=== PATIENT | female | born 1985 | race Caucasian/White ===

== ENCOUNTER 2016-09-21 11:25 | Outpatient (CLI) | payer MEDICAID ==
[2016-09-21 12:54] LABS: Hematocrit 33.2 % (30.3-42.9); Hemoglobin 11.1 gm/dl (10.1-14.3); Mean Corpuscular HGB Conc 33 % (30-34); Mean Corpuscular Hemoglobin 28 pg (28-32); Mean Corpuscular Volume 82 fl (79-97); Platelet Count 136 K/mm3 (140-440); Red Blood Count 4.02 M/mm3 (3.65-5.03); Red Cell Distribution Width 16.1 % (13.2-15.2); White Blood Count 6.5 K/mm3 (4.5-11.0)
[2016-09-21 13:19] LABS: Alanine Aminotransferase 12 units/L (7-56)
[2016-09-21 13:33] LABS: Bacteria,Urine 1+ /HPF (Negative); Bilirubin,Urine NEG (Negative); Blood,Urine LG (Negative); Ketones,Urine NEG (Negative); Leukocyte Esterase,Urine TR (Negative); Nitrite,Urine NEG (Negative); Protein,Urine <15 mg/dL mg/dL (Negative); Urobilinogen,Urine < 2.0 mg/dL (<2.0)
[2016-09-21 15:20] LABS: Lactate Dehydrogenase 160 units/L (91-180); Uric Acid 3.6 mg/dL (3.5-7.6)
[2016-09-21 15:41] VITALS: BP 143/78
== END 2016-09-21 15:44 | disposition home or self-care (01) ==
LOC: TRG 11:25 → INR 11:34 → TRG 11:45
PROVIDERS: ATTEND Obstetrics & Gynecology
DX: O47.1 False labor at or after 37 completed weeks of gestation (principal); Z3A.39 39 weeks gestation of pregnancy
CPT/HCPCS: 36415; 59025; 81001; 82565; 83615; 84450; 84460; 84550; 85027

== ENCOUNTER 2016-09-22 18:31 | Inpatient (IN) | payer MEDICAID ==
[2016-09-22] MEDS ORDERED: STADOL IV PRN (20:58)
[2016-09-22] MEDS ORDERED: SUBLIMAZE IV PRN (20:58)
[2016-09-22] MEDS ORDERED: PITOCin/NS 20 UNIT/1000ML DRIP 20 UNITS/1,000 ML BAG IV SCH (21:00)
[2016-09-22] MEDS ORDERED: PITOCin/NS 30 UNIT/500ML 30 UNITS/500 ML BAG IV SCH (21:00)
[2016-09-22] MEDS ORDERED: LACTATED RINGERS 1,000 ML IV SCH (21:00)
[2016-09-22 21:38] LABS: Hematocrit 34.9 % (30.3-42.9); Hemoglobin 11.5 gm/dl (10.1-14.3); Mean Corpuscular HGB Conc 33 % (30-34); Mean Corpuscular Hemoglobin 27 pg (28-32); Mean Corpuscular Volume 83 fl (79-97); Platelet Count 147 K/mm3 (140-440); Red Cell Distribution Width 16.7 % (13.2-15.2); White Blood Count 9.9 K/mm3 (4.5-11.0)
[2016-09-23] MEDS ORDERED: ePHEDrine SULFATE IV PRN (00:02)
[2016-09-23] MEDS ORDERED: STADOL IV PRN (00:02)
[2016-09-23] MEDS ORDERED: SUBLIMAZE IV PRN (00:02)
[2016-09-23] MEDS ORDERED: BRETHINE IVP PRN (00:02)
[2016-09-23] MEDS ORDERED: MINERAL OIL PO PRN (00:02)
[2016-09-23] MEDS ORDERED: BRETHINE SUB-Q PRN (00:02)
[2016-09-23] MEDS ORDERED: XYLOCAINE 2% INFILTRATI ONE (00:02)
--- NOTE | 2016-09-23 00:02 | History and Physical Report ---
History of Present Illness Date of examination: 09/22/16 Date of admission: 09/22/16 19:26 History of present illness: 31 yo LMP EDC 09/26/16 @ 39.3 weeks gestation presented to triage reported SROM-clear fluid that occurred at 1330 today. Denies vaginal bleeding, reported positive FM. Entry into care at 14 weeks gestation. course uncomplicated. She is GBS negative. Past History Past Medical History: no pertinent history Past Surgical History: no surgical history Family/Genetic History: none Social history: no significant social history - Obstetrical History Expected Date of Delivery: 09/26/16 Actual Gestation: 39 Week(s) 4 Day(s) : 1 Medications and Allergies Allergies Allergy/AdvReac Type Severity Reaction Status Date / Time No Known Allergies Allergy Unverified 09/21/16 11:57 Home Medications Medication Instructions Recorded Confirmed Last Taken Type No Known Home Medications [No 09/22/16 09/22/16 Unknown History Reported Home Medications] Active Meds: Active Medications Butorphanol Tartrate (Stadol) 2 mg IV Q2H PRN PRN Reason: Labor Pain Fentanyl (Sublimaze) 100 mcg IV Q1HR PRN PRN Reason: Pain Lactated Ringer's (Lactated Ringers) 1,000 mls @ 125 mls/hr IV DIRECT GREGG Last Admin: 09/22/16 22:17 Dose: 125 mls/hr Oxytocin/Sodium Chloride (Pitocin/Ns 20 Unit/1000ml Drip) 20 units in 1,000 mls @ 0 mls/hr IV DIRECT GREGG PRN Reason: As Directed Oxytocin/Sodium Chloride (Pitocin/Ns 30 Unit/500ml) 30 units in 500 mls @ 2 mls /hr IV TITR GREGG PRN Reason: Protocol Last Titration: 09/22/16 23:15 Dose: 6 ml/hr, 6 mls/hr Review of Systems All systems: negative Genitourinary: normal appearance, leakage of fluid, contractions, no genital sores - Vital Signs Vital signs: Vital Signs Pulse Pulse Ox 80 98 09/22/16 19:54 09/22/16 19:54 Temp Pulse Resp BP Pulse Ox 98.7 F 97 H 20 122/82 100 09/22/16 20:29 09/22/16 23:55 09/22/16 20:29 09/22/16 20:29 09/22/16 23:55 - Physical Exam Breasts: Positive: deferred Vagina: Positive: normal moisture - Obstetrical FHR: category 1 Uterine Contraction Monitor Mode: External Cervical Dilatation: 3.5 Uterine Contraction Frequency (min): -2 Uterine Contraction Duration: 2-3 Uterine Contraction Pattern: Regular Uterine Tone Measurement Phase: Resting Uterine Contraction Intensity: Mild Results Result Diagrams: 09/22/16 20:30 Abnormal lab results 09/22/16 Range/Units 20:30 MCH 27 L (28-32) pg RDW 16.7 H (13.2-15.2) % All other labs normal. Assessment and Plan A: IUP at 39.3 weeks gestation SROM-clear fluid GBS negative P: Active nilton't Pitocin
[2016-09-23] MEDS ORDERED: LACTATED RINGERS 1,000 ML IV SCH (01:00)
[2016-09-23] MEDS ORDERED: PITOCin/NS 20 UNIT/1000ML DRIP 20 UNITS/1,000 ML BAG IV SCH (01:00)
[2016-09-23] MEDS ORDERED: PITOCin/NS 30 UNIT/500ML 30 UNITS/500 ML BAG IV SCH ×2 (01:00)
[2016-09-23 01:29] LABS: Hematocrit 32.9 % (30.3-42.9); Hemoglobin 10.7 gm/dl (10.1-14.3)
--- NOTE | 2016-09-23 04:20 | Procedure Note ---
OB Delivery Note - Delivery Date of Delivery: 09/23/16 (6-7oz male @ 0445) Surgeon: CHARLA BERG - Vaginal Delivery presentation: vertex Delivery position: OA Delivery augmentation: pitocin Delivery monitor: external FHT, external uterine Route of delivery: Delivery placenta: spontaneous Delivery cord: 3 umbilical vessels Episiotomy: none Delivery laceration: none Anesthesia: none - A at 1 minute: 8 (Progressed rapidly to C/C/+1 pushed for viable male. NICU at for recent maternal sedation. Spont. lusty cry, placed skin to skin. Spont. placenta. Pitocin infusing. Fundus messaged firm. bleeding scant. No lacerations on inspection) at 5 minutes: 9 Infant Gender: Male
[2016-09-23] MEDS ORDERED: MILK OF MAGNESIA PO PRN (05:00)
[2016-09-23] MEDS ORDERED: PHENERGAN PO PRN (05:00)
[2016-09-23] MEDS ORDERED: PHENERGAN PR PRN (05:00)
[2016-09-23] MEDS ORDERED: BENADRYL PO PRN (05:00)
[2016-09-23] MEDS ORDERED: LANSINOH TP PRN (05:00)
[2016-09-23] MEDS ORDERED: TUCKS PAD TP PRN (05:00)
[2016-09-23] MEDS ORDERED: NORCO 5/325 PO PRN (05:00)
[2016-09-23] MEDS ORDERED: SODIUM CHLORIDE FLUSH SYRINGE 10 ML IV NR (05:00)
[2016-09-23] MEDS ORDERED: TYLENOL PO PRN (05:00)
[2016-09-23] MEDS ORDERED: DULCOLAX PR PRN (05:00)
[2016-09-23] MEDS: MOTRIN PO SCH ×2 (06:38→14:31)
[2016-09-23] MEDS: PRENATAL VITAMIN PO SCH (11:05)
[2016-09-23 18:55] LABS: Hematocrit 28.7 % (30.3-42.9); Hemoglobin 9.3 gm/dl (10.1-14.3)
[2016-09-24] MEDS: MOTRIN PO SCH ×5 (00:03→22:30)
[2016-09-24] MEDS ORDERED: BOOSTRIX IM ONE (06:05)
[2016-09-24] MEDS: PRENATAL VITAMIN PO SCH (10:36)
--- NOTE | 2016-09-24 17:18 | Progress Note ---
Assessment and Plan PPD 2 s/p .Doing well. Plan for discharge on today. Subjective - Subjective Date of service: 09/24/16 Patient reports: appetite normal, voiding normally, ambulating normally : doing well Objective - Vital Signs Latest vital signs: Vital Signs Temp Pulse Resp BP 09/24/16 08:32 97.6 F 80 20 116/72 09/24/16 00:00 98.2 F 88 20 135/79 Intake and Output 09/24/16 09/24/16 09/24/16 06:59 14:59 22:59 Intake Total 240 720 Balance 240 720 Intake: Oral 240 600 Intake, Free Water 120 Other: Total, Intake Amount 240 240 # Voids Void 1 1 - Exam Breasts: Present: deferred Cardiovascular: Present: Regular rate, Normal S1, Normal S2 Lungs: Present: Clear to auscultation, Normal air movement Abdomen: Present: normal appearance, soft, normal bowel sounds Vulva: both: normal Uterus: Present: normal, firm Extremities: Present: normal - Labs Labs: Abnormal lab results 09/23/16 Range/Units 18:25 Hgb 9.3 L (10.1-14.3) gm/dl Hct 28.7 L (30.3-42.9) %
--- NOTE | 2016-09-24 17:20 | Discharge Summary ---
Providers - Providers Date of Admission: 09/22/16 19:26 Date of discharge: 09/24/16 Attending physician: JONATHAN MONTESINOS Primary care physician: JONATHAN MONTESINOS Hospitalization Reason for admission: active labor Delivery: Episiotomy: none complications: none Discharge diagnosis: IUP at term delivered [place] baby: male Condition at discharge: Good Disposition: DC-01 TO HOME OR SELFCARE Plan - Discharge Medications Prescriptions: Ibuprofen [Motrin 600 MG tab] 600 mg PO Q6H #40 tablet Vit-Fe Fumar-FA [ Vitamin] 1 each PO QDAY #30 tablet - Provider Discharge Summary Activity: routine, no sex for 6 weeks, no heavy lifting 4 weeks, no strenuous exercise Diet: routine Instructions: routine Additional instructions: [] Smoking cessation referral if applicable(refer to patient education folder for contact #) [] Refer to [facility]'s [facility] Booklet Call your doctor immediately for: * Fever > 100.5 * Heavy vaginal bleeding ( >1 pad per hour) * Severe persistent headache * Shortness of breath * Reddened, hot, painful area to leg or breast * Drainage or odor from incision. * Keep incision clean and dry at all times and follow doctor's instructions regarding bathing/showering - Follow up plan Follow up: JONATHAN MONTESINOS MD [Primary Care Provider] - 6 Weeks
[2016-09-25] MEDS: MOTRIN PO SCH (06:01)
[2016-09-25] MEDS: PRENATAL VITAMIN PO SCH (10:14)
[2016-09-25 13:00] VITALS: BP 110/70
== END 2016-09-25 11:30 | disposition home or self-care (01) | DRG 775 ==
LOC: TRG 18:31 → LD 19:26 → OB 09-23 06:08
PROVIDERS: ADMIT Obstetrics & Gynecology; ATTEND Obstetrics & Gynecology
PROC: 10E0XZZ Delivery of Products of Conception, External Approach (ICD-10-PCS; principal; 2016-09-23)
DX: O42.92 Full-term premature rupture of membranes, unspecified as to length of time between rupture and onset of labor (principal); Z3A.39 39 weeks gestation of pregnancy; Z37.0 Single live birth
CPT/HCPCS: 36415; 85014; 85018; 85027; 86850; 86900; 86901; 90471; 90715; 99211; A6250; G0463; J0595; J2590; J3010; J7120

== ENCOUNTER 2020-01-15 05:56 | Day surgery (SDC) | payer BC, MEDICAID ==
[2020-01-15] MEDS ORDERED: BACTERIOSTATIC SODIUM CHLORIDE 0.9% 30 ML VIAL INFILTRATI ONE (06:23)
[2020-01-15] MEDS ORDERED: MIDAZOLAM 2 MG/2 ML INJ IV ONE (06:50)
[2020-01-15] MEDS ORDERED: LACTATED RINGERS 1,000 ML IV SCH (06:50)
[2020-01-15] MEDS ORDERED: propofoL 200 MG/20 ML VIAL IV ONE (07:12)
[2020-01-15] MEDS ORDERED: HYDROmorphone 1 MG/1 ML INJ ONE (07:12)
[2020-01-15] MEDS ORDERED: LIDOCAINE MPF (2%) 20 MG/1 ML VIAL 5 ML ONE (07:13)
[2020-01-15] MEDS ORDERED: ROCURONIUM 50 MG/5 ML INJ IV ONE (07:13)
[2020-01-15] MEDS ORDERED: HYDROmorphone 1 MG/1 ML INJ IV PRN ×2 (07:17)
[2020-01-15] MEDS ORDERED: ONDANSETRON 4 MG/2 ML INJ IV PRN (07:17)
--- NOTE | 2020-01-15 07:17 | Anesthesia Day of Surgery ---
Anesthesia Day of Surgery - Day of Surgery Patient Examined: Yes Patient H&P Reviewed: Yes Patient is NPO: Yes
--- NOTE | 2020-01-15 07:18 | Anesthesia Consultation ---
Anesthesia Consult and Med Hx Date of service: 01/15/20 - Airway Anesthetic Teeth Evaluation: Crowns ROM Head & Neck: Adequate Mental/Hyoid Distance: Adequate Mallampati Class: Class III Intubation Access Assessment: Probably Good - Pre-Operative Health Status ASA Pre-Surgery Classification: ASA2 Proposed Anesthetic Plan: General - Pulmonary Hx Asthma: No (+2FS) COPD: No Hx Pneumonia: No - Cardiovascular System Hx Hypertension: No - Central Nervous System Hx Seizures: No Hx Psychiatric Problems: No - Gastrointestinal Hx Gastroesophageal Reflux Disease: No - Endocrine Hx End Stage Renal Disease: No Hx Hypothyroidism: No Hx Hyperthyroidism: No - Hematic Hx Anemia: No Hx Sickle Cell Disease: No - Other Systems Hx Alcohol Use: No Hx Cancer: No
[2020-01-15] MEDS ORDERED: BUPIVACAINE/PF (0.5%) 5 MG/1 ML 10 ML VIAL INFILTRATI ONE ×2 (07:20→08:21)
--- NOTE | 2020-01-15 07:37 | Short Stay Summary ---
Short Stay Documentation Date of service: 01/15/20 Narrative H&P: 34-year-old -0-0-1 with undesired fertility. The patient has elected to undergo bilateral salpingectomy. She is aware of other contraceptive options. - History Principal diagnosis: Unwanted fertility Past Medical History: other (Obesity) Past Surgical History: No surgical history Social history: - Allergies and Medications Current Medications: Allergies No Known Allergies Allergy (Unverified 01/07/20 11:39) Home Medications Medication Instructions Recorded Confirmed Last Taken Type No Known Home Medications [No 01/07/20 01/07/20 Unknown History Reported Home Medications] Active Medications Hydromorphone HCl (Dilaudid) 0.25 mg IV Q10MIN PRN PRN Reason: Pain, Moderate (4-6) Hydromorphone HCl (Dilaudid) 0.5 mg IV Q10MIN PRN PRN Reason: Pain , Severe (7-10) Lactated Ringer's (Lactated Ringers) 1,000 mls @ 100 mls/hr IV DIRECT GREGG Last Admin: 01/15/20 07:21 Dose: 100 mls/hr Documented by: Ondansetron HCl (Zofran) 4 mg IV ONCE PRN PRN Reason: Nausea And Vomiting - Physical exam General appearance: no acute distress Integumentary: no rash HEENT: Atraumatic Lungs: Clear to auscultation Breasts: deferred Heart: Regular rate Gastrointestinal: normal Female Genitourinary: deferred Rectal Exam: deferred - Brief post op/procedure progress note Date of procedure: 01/15/20 Pre-op diagnosis: Unwanted fertility Post-op diagnosis: other (Right ovarian cyst) Procedure: Laparoscopy Bilateral salpingectomy Right ovarian cystectomy Anesthesia: GETA Surgeon: JONATHAN MONTESINOS Estimated blood loss: minimal Pathology: list (Ovarian cyst wall; bilateral fallopian tubes) Specimen disposition: to lab Condition: stable - Hospital course Hospital course: The patient was admitted the day of surgery underwent a laparoscopy, bilateral salpingectomy, right ovarian cystectomy. See operative note for details of surgery. Her postoperative course was uneventful. - Disposition Condition at discharge: Good Disposition: DC-01 TO HOME OR SELFCARE Short Stay Discharge Plan Activity: other (Pelvic rest for 1 week) Diet: regular Additional Instructions: Follow-up is not required Follow-up as needed Prescriptions: Ibuprofen [Motrin] 800 mg PO Q8HR PRN #30 tablet PRN Reason: Pain , Severe (7-10) HYDROcodone/APAP 5-325 [[place] 5/325] 1 each PO Q6HR PRN #15 tablet PRN Reason: Pain
[2020-01-15] MEDS ORDERED: KETOROLAC 30 MG/1 ML INJ ONE (08:12)
[2020-01-15] MEDS ORDERED: dexAMETHasone 20 MG/5 ML VIAL ONE (08:12)
[2020-01-15] MEDS ORDERED: ONDANSETRON 4 MG/2 ML INJ ONE (08:12)
[2020-01-15] MEDS ORDERED: GLYCOPYRROLATE 0.4 MG/2 ML INJ ONE (08:14)
[2020-01-15] MEDS ORDERED: NEOSTIGMINE 10MG/10 ML INJ MDV ONE (08:14)
[2020-01-15] MEDS ORDERED: SODIUM CHLORIDE 0.9% IRR 1,500 ML BOTTLE IR ONE (08:22)
--- NOTE | 2020-01-15 08:42 | Operative Report ---
Operative Report Operative Report: Date of surgery: January 15, 2020 Preoperative diagnosis: Unwanted fertility Postoperative diagnosis: Same as above; right ovarian cyst Procedure: Laparoscopy; Bilateral salpingectomy; right ovarian cystectomy Surgeon: Brianne Kumar M.D. Anesthesia: General endotracheal anesthesia Estimated blood loss: Minimal Pathology: Bilateral fallopian tubes; ovarian cyst wall Findings: Normal uterus and tubes bilaterally. Right ovarian cyst Indication: 34-year-old -0-0-1 with a history of unwanted fertility. The patient is elected to undergo permanent sterilization. Procedure: The patient was taken to the operating room and given general endotracheal anesthesia without complication. The patient is prepped and draped in a normal sterile fashion. A bivalve speculum was placed in the patient's vagina and a single-tooth tenaculum was placed on the anterior lip of the cervix .A uterine acorn manipulator was placed, and the bivalve speculum was then removed. Attention was then turned to the patient's abdomen where a 5 mm infraumbilical skin incision was then made. A Veress needle was placed and peritoneal entry was verified water-filled syringe. Insufflation of the peritoneal cavity was performed with CO2 gas. A 5 mm trocar was placed and the laparoscope was then inserted. The patient was then placed in Trendelenburg. A 7 mm suprapubic skin incision was then made. Under direct visualization a 7 mm trocar was then placed. An additional 5 mm left lateral trocar was also placed. General survey of the patient's abdomen revealed enlarged right ovarian cyst with evidence of serous fluid, tubes bilaterally and normal uterus. The fallopian tube was then followed out to the fimbriated end. The LigaSure device was used in order to coagulate and transect the mesosalpinx. The fallopian tube was excised from the adnexa. The fallopian tube was removed through the 7 mm trocar. This was performed on the contralateral side as well. The LigaSure device was used in order to incise the right ovarian cyst. The cyst wall was extracted from the cortex of the ovary. Hemoblast was applied to the ovarian tissue. The trocars were then removed. The pneumoperitoneum was then released. The 5 mm trocar laparoscope was then removed. The skin incisions were then closed with 4-0 Monocryl. The incisions were injected with quarter percent Marcaine. Dressings were applied to the incision. The vaginal instruments were then removed atraumatically. Then successfully extubated and taken to the recovery room. All sponge laps and needle counts were correct x2.
[2020-01-15] MEDS ORDERED: HYDROcodone/ACETAMINOPHEN 5-325 MG TAB ONE (09:37)
[2020-01-15] MEDS ORDERED: HYDROcodone/ACETAMINOPHEN 5-325 MG TAB PO NR (09:40)
[2020-01-15 10:23] VITALS: BP 115/65
--- NOTE | 2020-01-15 11:15 | Post Anesthesia Evaluation ---
- Post Anesthesia Evaluation Patient Participated: Yes Airway Patent: Yes Stable Respiratory Function: Yes Nausea/Vomiting: No Temp > 96.8F: Yes Pain Manageable: Yes Adequeate Hydration: Yes Anesthesia Complications: No Block Receding Appropriately: Not Applicable Patient on Ventilator: No
== END 2020-01-15 10:10 | disposition home or self-care (01) ==
LOC: OR 05:56
PROVIDERS: ATTEND Obstetrics & Gynecology
DX: Z30.2 Encounter for sterilization (principal); N83.201 Unspecified ovarian cyst, right side; G43.909 Migraine, unspecified, not intractable, without status migrainosus; Z79.899 Other long term (current) drug therapy
CPT/HCPCS: 58662; 58670; 81025; 88302; 88305; J1100; J1170; J1885; J2250; J2405; J2704; J2710; J7120